=== PATIENT | female | born 1955 | race Two or more races ===

== ENCOUNTER 2021-04-12 15:55 | Emergency (ER) | payer OTHER ==
[~2021-04-12] VITALS: Ht 162.6 cm; Wt 52.2 kg
[2021-04-12] MEDS ORDERED: MULTI VITAMIN1 EACH (16:37)
== END 2021-04-12 18:55 | disposition home or self-care (01) ==
LOC: ER 15:55
DX: S01.81XA Laceration without foreign body of other part of head, initial encounter (principal); S80.02XA Contusion of left knee, initial encounter; W01.0XXA Fall on same level from slipping, tripping and stumbling without subsequent striking against object, initial encounter; Y93.01 Activity, walking, marching and hiking; Y92.481 Parking lot as the place of occurrence of the external cause

== ENCOUNTER 2021-04-22 09:23 | Emergency (ER) | payer OTHER ==
[~2021-04-22] VITALS: Ht 152.4 cm; Wt 52.2 kg
[~2021-04-22 09:23] MED LIST: MULTI VITAMIN1 EACH
== END 2021-04-22 10:46 | disposition home or self-care (01) ==
LOC: ER 09:23
DX: Z48.02 Encounter for removal of sutures (principal); Z88.1 Allergy status to other antibiotic agents; Z88.0 Allergy status to penicillin; Z88.8 Allergy status to other drugs, medicaments and biological substances